=== PATIENT | male | born 1985 | race Caucasian/White ===

== ENCOUNTER 2016-09-06 05:27 | Emergency (ER) | payer SELFPAY ==
--- NOTE | 2016-09-06 05:34 | EDPHY ---
H & P Time Seen by Provider: 09/06/16 05:33 HPI/ROS: HPI The patient presents for medical clearance, brought in by the police. Apparently, the patient was found crossing a very busy street in between cars. The police thought that he was intoxicated. The patient seems somewhat confused , he is brought here for evaluation. Currently, he denies any complaints. He says he was using ecstasy last night. He also admits to drinking alcohol.. REVIEW OF SYSTEMS Constitutional: No fever, no chills. Eyes: No discharge. ENT: No sore throat. Cardiovascular: No chest pain, no palpitations. Respiratory: No cough, no shortness of breath. Gastrointestinal: No abdominal pain, no vomiting. Genitourinary: No hematuria. Musculoskeletal: No back pain. Skin: No rashes. Neurological: No headache. PMHx: No diabetes, no hypertension Soc Hx: Alcohol and ecstasy use PHYSICAL General Appearance: Alert, somewhat agitated, though is able to answer questions Eyes: Pupils equal and round no pallor or injection ENT, Mouth: Mucous membranes moist, whitish substance within both nostrils Respiratory: There are no retractions, lungs are clear to auscultation Cardiovascular: Regular rate and rhythm Gastrointestinal: Abdomen is soft and non-tender, no masses, bowel sounds normal Neurological: A&O, moves all extremities Skin: Warm and dry, no rashes Musculoskeletal: Neck is supple non tender Extremities: symmetrical, full range of motion Psychiatric: Patient is oriented X 3 Source: Patient, Police Exam Limitations: No limitations Constitutional: Initial Vital Signs Temperature (C) 36.3 C 09/06/16 05:37 Heart Rate 95 09/06/16 05:37 Respiratory Rate 16 09/06/16 05:37 Blood Pressure 117/86 H 09/06/16 05:37 O2 Sat (%) 97 09/06/16 05:37 O2 Delivery Mode Room Air Allergies/Adverse Reactions: No Known Allergies Allergy (Unverified 09/06/16 05:36) Home Medications: Medication Instructions Recorded NK [No Known Home Meds] 09/06/16 Medical Decision Making Differential Diagnosis: This is a 31-year-old man with no significant past medical history who presents brought in by police for medical clearance after being found walking on a busy street between cars. Does not appear to have suffered from any traumatic injuries. He does admit to using alcohol and cocaine. This likely explains his current presentation. He does not have any medical complaints. His physical exam is unremarkable. He will be medically cleared and discharged into police custody. Departure - Departure Disposition: Home, Routine, Self-Care Clinical Impression: Medical clearance for incarceration Condition: Good Instructions: Poison Proofing Your Home (ED) Referrals: [facility] [Outside] - As per Instructions
[2016-09-06 05:39] VITALS: BP 117/86; PULSE 95; RESP 16; TEMP 97.3; O2SAT 97
== END 2016-09-06 05:44 | disposition home or self-care (01) ==
DX: Z00.8 Encounter for other general examination (principal)